=== PATIENT | male | born 1970 | race Caucasian/White ===

== ENCOUNTER → 2021-08-18 | Outpatient (CLI) | payer OTHER ==
--- NOTE | 2021-08-18 14:21 | KCIC ---
EXAMINATION: CT CORONARY ARTERY CALCIUM SCREENING, OVER-READ CLINICAL HISTORY: Coronary risk factors, calcium scoring requested. TECHNIQUE: Noncontrast axial images obtained through the chest at the level of the heart for coronary artery calcium scoring. *One or more of the following individualized dose reduction techniques were utilized for this examina tion: 1. Automated exposure control. 2. Adjustment of the mA and/or kV according to patient size. 3. Use of iterative reconstruction technique. COMPARISON: None FINDINGS: Refer to cardiology report for coronary artery calcium scoring and other cardiac findings. Additional CT findings are as follows: No mediastinal lymphadenopathy. Normal heart size. No pericardial effusion. Minimal scattered subsegmental atelectasis. No pleural effusion. No acute osseous abnormality. Partially visualized upper abdomen unremarkable. IMPRESSION: No evidence of acute cardiopulmonary abnormality in the partially visualized chest. Refer to cardiology report for additional coronary and cardiac findings. Electronically signed by: Loco Blair DO (08/18/2021 2:19 PM) MINDY
== END ==
LOC: KCIC CT 12:18
PROVIDERS: ATTEND Family Medicine
DX: Z13.6 Encounter for screening for cardiovascular disorders (principal)
CPT/HCPCS: 75571